=== PATIENT | female | born 1955 | race Caucasian/White ===

== ENCOUNTER → 2021-06-08 | Outpatient (CLI) | payer MEDICARE ==
[~2021-06-08] MED LIST: ALBUTEROL SULF 0.083% NEB SOLN 3 ML NEB ONE; ALPRAZOLAM0.25 MG PO; CALCIUM PO; FENOFIBRATE145 MG PO; FISH OIL PO; LEXAPRO10 MG PO; LISINOPRIL10 MG PO; LYRICA PO; METOPROLOL SUCC25 MG PO; MULTI-VITAMIN1 EACH PO; NORCO 7.5-3251 EACH PO; PROAIR HFA INH8.5 GM INH; TRAMADOL PO
== END ==
LOC: RESP 09:25
PROVIDERS: ATTEND Internal Medicine
DX: J44.9 Chronic obstructive pulmonary disease, unspecified (principal)
CPT/HCPCS: 94060; 94640; 94727; 94729

== ENCOUNTER → 2021-08-31 | Outpatient (CLI) | payer MEDICARE ==
[~2021-08-31] MED LIST changes: -ALBUTEROL SULF 0.083% NEB SOLN 3 ML NEB ONE; +DIATRIZOATE MEGL/DIATRIZOA SOD 30 ML BTL PO ONE; +IOPAMIDOL 370 MG/ML 200 ML INFUS..BTL INJ ONE; +SODIUM CHLORIDE 0.9% 50ML 50 ML ONE
[2021-08-31 17:13] LABS: CREATININE, SERUM 0.73 mg/dL (0.57-1.11)
== END ==
LOC: CT 15:32
PROVIDERS: ATTEND Surgery
DX: K80.20 Calculus of gallbladder without cholecystitis without obstruction (principal); K76.9 Liver disease, unspecified
CPT/HCPCS: 36415; 74160; 82565; 84520; Q9967

== ENCOUNTER 2022-02-11 13:30 | Inpatient (IN) | payer MEDICARE ==
[~2022-02-11] VITALS: Ht 160 cm; Wt 56.7 kg
[~2022-02-11 13:30] MED LIST changes: -DIATRIZOATE MEGL/DIATRIZOA SOD 30 ML BTL PO ONE; -IOPAMIDOL 370 MG/ML 200 ML INFUS..BTL INJ ONE; -SODIUM CHLORIDE 0.9% 50ML 50 ML ONE
[2022-02-11] MEDS ORDERED: SODIUM CHLORIDE 0.9% 1000ML 1,000 ML IV STA ×2 (14:53→15:01)
[2022-02-11] MEDS ORDERED: ONDANSETRON HCL INJ 2MG/ML 2ML 2 MG/ML VIAL IV ONE (15:15)
[2022-02-11] MEDS ORDERED: KETOROLAC TROMETHAMINE 30 MG/ML VIAL IV ONE (15:15)
[2022-02-11] MEDS ORDERED: Morphine 4mg INJECTION 4 MG/ML INJ IV ONE (15:15)
[2022-02-11 15:23] LABS: BASOPHILS # (AUTO) 0.1 (0.0-0.1); BASOPHILS % 0.4 % (0.0-1.0); EOSINOPHILS # (AUTO) 0.1 (0.0-0.4); EOSINOPHILS % 0.7 % (0.0-6.0); HEMATOCRIT 35.2 % (34.2-44.1); HEMOGLOBIN 11.5 g/dL (12.0-16.0); LYMPHOCYTES # (AUTO) 1.6 (1.0-3.2); LYMPHOCYTES % 11.8 % (18.0-39.1); MEAN CORPUSCULAR HEMOGLOBIN 31.8 pg (28-32); MEAN CORPUSCULAR HGB CONC 32.7 g/dL (31-35); MEAN CORPUSCULAR VOLUME 97.2 fL (81-99); MONOCYTES # (AUTO) 1.5 (0.2-0.8); MONOCYTES % 10.9 % (4.4-11.3); NEUTROPHILS # (AUTO) 10.1 (2.1-6.9); NEUTROPHILS % 75.8 % (38.7-80.0); PLATELET COUNT 248 x10e3/uL (140-360); RED BLOOD COUNT 3.62 x10e6/uL (3.6-5.1); RED CELL DISTRIBUTION WIDTH 12.1 % (11.7-14.4)
[2022-02-11 15:34] LABS: INR 0.95; PROTHROMBIN TIME 13.5 seconds (11.9-14.5)
[2022-02-11 15:35] LABS: PARTIAL THROMBOPLASTIN TIME 25.8 seconds (23.8-35.5)
[2022-02-11 15:47] LABS: ALANINE AMINOTRANSFERASE 9 IU/L (0-55); ALBUMIN 3.5 g/dL (3.5-5.0); ALBUMIN/GLOBULIN RATIO 0.9 (0.8-2.0); ALKALINE PHOSPHATASE 63 IU/L (40-150); ANION GAP 18.2 mmol/L (8-16); BLOOD UREA NITROGEN 8 mg/dL (7-26); BUN/CREATININE RATIO 12 (6-25); CALCIUM 9.8 mg/dL (8.4-10.2); CARBON DIOXIDE 26 mmol/L (22-29); CHLORIDE 96 mmol/L (98-107); CREATINE KINASE 23 IU/L (29-168); CREATININE, SERUM 0.69 mg/dL (0.57-1.11); GLUCOSE 110 mg/dL (74-118); POTASSIUM 3.2 mmol/L (3.5-5.1); SODIUM 137 mmol/L (136-145)
[2022-02-11] MEDS ORDERED: ALBUTEROL SULFATE HFA 8GM INHALATION AEROSOL INH PRN (16:00)
[2022-02-11] MEDS ORDERED: POTASSIUM CHLORIDE 20 MEQ TAB CR PO NR (16:15)
[2022-02-11] MEDS ORDERED: IOPAMIDOL 370 MG/ML 100 ML INFUS..BTL INJ ONE (17:34)
[2022-02-11 18:23] VITALS: BP 147/50
[2022-02-11 20:00] VITALS: BP 122/66
[2022-02-11] MEDS ORDERED: ZOLPIDEM TARTRATE 5 MG TAB PO PRN (21:00)
[2022-02-11 21:30] VITALS: BP 122/66
[2022-02-12] VITALS (8 sets, daily range): BP systolic 95–118; BP diastolic 53–71
[2022-02-12] MEDS: HYDROCODONE/APAP 7.5MG-325MG 1 EA TAB PO PRN ×2 (00:36→08:37)
[2022-02-12] MEDS ORDERED: ASPIRIN81 MG PO (01:35)
[2022-02-12] MEDS ORDERED: BENICAR20 MG PO (01:35)
[2022-02-12] MEDS ORDERED: PANTOPRAZOLE SO40 MG PO (01:35)
[2022-02-12] MEDS ORDERED: FINASTERIDE5 MG PO (01:35)
[2022-02-12] MEDS ORDERED: ATORVASTATIN CA20 MG PO (01:35)
[2022-02-12] MEDS: SENNA-S TABLET PO SCH ×2 (09:30→17:00)
[2022-02-12] MEDS ORDERED: ONDANSETRON HCL INJ 2MG/ML 2ML 2 MG/ML VIAL IV PRN (09:30)
[2022-02-12] MEDS ORDERED: ACETAMINOPHEN 325 MG TAB PO PRN (09:30)
[2022-02-12] MEDS ORDERED: ALPRAZOLAM 0.25 MG TAB PO PRN (09:30)
[2022-02-12] MEDS: ALBUTEROL/IPRATROPIUM 3 ML NEB NEB SCH ×3 (09:30→19:00)
[2022-02-12] MEDS ORDERED: ALBUTEROL/IPRATROPIUM 3 ML NEB NEB PRN (09:30)
[2022-02-12] MEDS ORDERED: GUAIFENESIN/CODEINE 5 ML LIQD PO PRN (09:30)
[2022-02-12] MEDS ORDERED: GUAIFENESIN/CODEINE 5 ML LIQD PO ONE (10:00)
[2022-02-12] MEDS ORDERED: HYDROCODONE/APAP 5MG-325MG TAB PO SCH (10:00)
[2022-02-12] MEDS ORDERED: HYDROCODONE/APAP 5MG-325MG TAB PO PRN (10:00)
[2022-02-12] MEDS: BENZONATATE 100 MG CAP PO SCH ×3 (11:56→17:10)
[2022-02-12] MEDS: METHYLPREDNISOLONE SOD SUCC 40 MG/ML VIAL 1ML IV SCH ×2 (11:56→21:49)
[2022-02-12] MEDS: CELECOXIB 100 MG CAP PO SCH ×2 (11:57→17:10)
[2022-02-12] MEDS: KCL 20MEQ/.9 SOD CHL 1,000 ML IV SCH ×2 (12:08→19:30)
[2022-02-12] MEDS: Morphine 4mg INJECTION 4 MG/ML INJ IV PRN (15:21)
[2022-02-12] MEDS: ATORVASTATIN 40 MG TAB PO SCH (21:49)
[2022-02-13] VITALS (8 sets, daily range): BP systolic 114–149; BP diastolic 57–73
[2022-02-13] MEDS: KCL 20MEQ/.9 SOD CHL 1,000 ML IV SCH (00:04)
[2022-02-13] MEDS: BENZONATATE 100 MG CAP PO SCH ×5 (00:04→23:53)
[2022-02-13] MEDS: Morphine 4mg INJECTION 4 MG/ML INJ IV PRN ×3 (00:05→20:23)
[2022-02-13] MEDS: ALBUTEROL/IPRATROPIUM 3 ML NEB NEB SCH ×4 (01:00→19:00)
[2022-02-13] MEDS: SENNA-S TABLET PO SCH ×2 (08:42→16:33)
[2022-02-13] MEDS: OLMESARTAN 20 MG TAB PO SCH (08:43)
[2022-02-13] MEDS: HYDROCODONE/APAP 7.5MG-325MG 1 EA TAB PO PRN (08:43)
[2022-02-13] MEDS: CELECOXIB 100 MG CAP PO SCH ×2 (08:44→16:33)
[2022-02-13] MEDS: FINASTERIDE 5 MG TAB PO SCH (08:44)
[2022-02-13] MEDS: METOPROLOL SUCCINATE 25 MG TAB XL PO SCH (08:44)
[2022-02-13] MEDS: METHYLPREDNISOLONE SOD SUCC 40 MG/ML VIAL 1ML IV SCH ×2 (09:05→21:34)
[2022-02-13] MEDS ORDERED: ONDANSETRON HCL 4 MG ORAL DISINTEGRATING TAB PO PRN (11:45)
[2022-02-13] MEDS: GUAIFENESIN/CODEINE 5 ML LIQD PO PRN ×2 (14:51→21:33)
[2022-02-13] MEDS ORDERED: BISACODYL 5 MG TAB EC PO ONE ×3 (20:15→21:15)
[2022-02-13] MEDS ORDERED: PEG (High)/E-LYTE SOLN 4,000 ML BTL PO ONE (20:15)
[2022-02-13] MEDS: ATORVASTATIN 40 MG TAB PO SCH (21:34)
[2022-02-14 00:10] VITALS: BP 130/66
[2022-02-14] MEDS: ALBUTEROL/IPRATROPIUM 3 ML NEB NEB SCH ×2 (04:05→06:31)
[2022-02-14 05:16] VITALS: BP 120/62
[2022-02-14] MEDS: BENZONATATE 100 MG CAP PO SCH ×2 (05:41→09:41)
[2022-02-14 07:16] LABS: BASOPHILS % 0.1 % (0.0-1.0); HEMATOCRIT 28.7 % (34.2-44.1); HEMOGLOBIN 9.1 g/dL (12.0-16.0); LYMPHOCYTES # (AUTO) 0.7 (1.0-3.2); LYMPHOCYTES % 6.6 % (18.0-39.1); MEAN CORPUSCULAR HEMOGLOBIN 31.7 pg (28-32); MEAN CORPUSCULAR HGB CONC 31.7 g/dL (31-35); MONOCYTES # (AUTO) 0.5 (0.2-0.8); MONOCYTES % 5.1 % (4.4-11.3); NEUTROPHILS # (AUTO) 8.6 (2.1-6.9); NEUTROPHILS % 87.3 % (38.7-80.0); PLATELET COUNT 253 x10e3/uL (140-360); RED BLOOD COUNT 2.87 x10e6/uL (3.6-5.1); RED CELL DISTRIBUTION WIDTH 12.2 % (11.7-14.4)
[2022-02-14] MEDS: CELECOXIB 100 MG CAP PO SCH (07:26)
[2022-02-14] MEDS: Morphine 4mg INJECTION 4 MG/ML INJ IV PRN (07:26)
[2022-02-14 07:39] LABS: ANION GAP 13.7 mmol/L (8-16); CALCIUM 8.6 mg/dL (8.4-10.2); CREATININE, SERUM 0.57 mg/dL (0.57-1.11); POTASSIUM 3.7 mmol/L (3.5-5.1)
[2022-02-14 08:23] VITALS: BP 120/62
[2022-02-14 08:27] VITALS: BP 135/66
[2022-02-14] MEDS: METHYLPREDNISOLONE SOD SUCC 40 MG/ML VIAL 1ML IV SCH (09:38)
[2022-02-14] MEDS: SENNA-S TABLET PO SCH (09:41)
[2022-02-14] MEDS: METOPROLOL SUCCINATE 25 MG TAB XL PO SCH (09:41)
[2022-02-14] MEDS: FINASTERIDE 5 MG TAB PO SCH (09:41)
[2022-02-14] MEDS: OLMESARTAN 20 MG TAB PO SCH (09:42)
[2022-02-14] MEDS: GUAIFENESIN/CODEINE 5 ML LIQD PO PRN (09:42)
[2022-02-14] MEDS ORDERED: AUGMENTIN 500-1 EACH PO (10:31)
[2022-02-14] MEDS ORDERED: tessalon PO (10:33)
[2022-02-14] MEDS ORDERED: duoneb IH (10:37)
[2022-02-14] MEDS ORDERED: CELEBREX100 MG PO (10:38)
[2022-02-14] MEDS ORDERED: medrol pack (10:38)
[2022-02-14] MEDS ORDERED: CHERATUSSIN (10:40)
[2022-02-14] MEDS ORDERED: CHERATUSSIN AC PO (10:43)
[2022-02-14] MEDS: HYDROCODONE/APAP 7.5MG-325MG 1 EA TAB PO PRN (11:28)
[2022-02-14] MEDS ORDERED: AZITHROMYCIN 250 MG TAB PO SCH (21:00)
[2022-02-15] MEDS ORDERED: PANTOPRAZOLE SOD 40 MG TABEC PO SCH (07:30)
== END 2022-02-14 11:55 | disposition home or self-care (01) | DRG 190 ==
LOC: ER 13:52 → ERHOLD 16:07 → MED/SURG2 18:07
PROVIDERS: ADMIT Internal Medicine; ATTEND Internal Medicine
DX: J44.1 Chronic obstructive pulmonary disease with (acute) exacerbation (principal); J18.9 Pneumonia, unspecified organism; J44.0 Chronic obstructive pulmonary disease with (acute) lower respiratory infection; S22.41XG Multiple fractures of ribs, right side, subsequent encounter for fracture with delayed healing; W19.XXXD Unspecified fall, subsequent encounter; Z79.52 Long term (current) use of systemic steroids; E87.6 Hypokalemia; D64.9 Anemia, unspecified; M54.30 Sciatica, unspecified side; J45.909 Unspecified asthma, uncomplicated; F17.200 Nicotine dependence, unspecified, uncomplicated; Z20.822 Contact with and (suspected) exposure to COVID-19
CPT/HCPCS: 36415; 70450; 71101; 71260; 72125; 74177; 80048; 80053; 82550; 82553; 83605; 83735; 83880; 84484; 85025; 85610; 85730; 87040; 93005; 93970; 94640; 94799; 99283; J0456; J0696; J1885; J2270; J2405; J2920; J7030; J7050; Q9967

== ENCOUNTER → 2022-08-09 | Outpatient (CLI) | payer MEDICARE ==
[~2022-08-09] MED LIST changes: +ASPIRIN81 MG PO; +ATORVASTATIN CA20 MG PO; +AUGMENTIN 500-1 EACH PO; +BENICAR20 MG PO; +CELEBREX100 MG PO; +CHERATUSSIN; +CHERATUSSIN AC PO; +FINASTERIDE5 MG PO; +PANTOPRAZOLE SO40 MG PO; +duoneb IH; +medrol pack; +tessalon PO
== END ==
LOC: CT 11:53
PROVIDERS: ATTEND Internal Medicine
DX: R91.1 Solitary pulmonary nodule (principal)
CPT/HCPCS: 71250

== ENCOUNTER → 2024-08-06 | Outpatient (REF) | payer MEDICARE ==
[~2024-08-06] MED LIST changes: +NAPROXEN250 MG PO
== END ==
LOC: CT 11:38
PROVIDERS: ATTEND Internal Medicine
DX: R91.1 Solitary pulmonary nodule (principal)
CPT/HCPCS: 71250